=== PATIENT | female | born 1950 | race African-American/Black ===

== ENCOUNTER 2019-02-14 16:20 | Inpatient (IN) | payer OTHER ==
[~2019-02-14] VITALS: Ht 162.6 cm; Wt 82.3 kg
[2019-02-14 16:21] VITALS: BP 100/57
[2019-02-14 17:12] LABS: ABSOLUTE NEUTROPHILS 4.9 thou/uL (1.4-8.2); BASOPHILS 1.4 % (0.0-2.0); EOSINOPHILS 3.4 % (0.0-3.0); HEMATOCRIT 34.1 % (37.0-47.0); HEMOGLOBIN 11.5 gm/dL (12.0-15.0); MCH 31.4 pg (26.0-34.0); MCHC 33.8 g/dL (28.0-37.0); MCV 92.9 fL (80.0-100.0); MONOCYTES 5.2 % (1.0-8.0); PLATELET COUNT 381 thou/uL (150-400); RBC 3.67 mil/uL (4.20-5.00); RDW 13.5 % (10.5-14.5); WBC 7.4 thou/uL (4.0-11.0)
[2019-02-14 17:19] LABS: ANION GAP 14 mmol/L (7-16); BUN 26 mg/dL (7-18); CALCIUM 10.1 mg/dL (8.5-10.1); CHLORIDE 101 mmol/L (98-107); CO2 22 mmol/L (21-32); CREATININE 1.3 mg/dL (0.6-1.0); GLUCOSE 205 mg/dL (74-106); SODIUM 137 mmol/L (136-145)
[2019-02-14 17:28] LABS: ALBUMIN 3.4 g/dL (3.4-5.0); SGOT 19 U/L (15-37); SGPT 24 U/L (30-65); TOTAL BILIRUBIN 0.3 mg/dL (<0.1-1.0); TOTAL PROTEIN 7.3 g/dL (6.4-8.2); TROPONIN-I <0.06 ng/mL (<0.06)
[2019-02-14] MEDS ORDERED: TYLENOL EXTRA500 MG PO (17:50)
[2019-02-14] MEDS ORDERED: ATORVASTATIN CA40 MG PO (17:50)
[2019-02-14] MEDS ORDERED: ASPIR 8181 MG PO (17:50)
[2019-02-14] MEDS ORDERED: COLACE100 MG PO (17:51)
[2019-02-14] MEDS ORDERED: BENICAR40 MG PO (17:51)
[2019-02-14] MEDS ORDERED: METFORMIN HCL500 MG PO (17:51)
[2019-02-14] MEDS ORDERED: OMEPRAZOLE40 MG PO (17:51)
[2019-02-14] MEDS ORDERED: CARDIZEM CD120 MG PO (17:51)
[2019-02-14] MEDS ORDERED: CYMBALTA30 MG PO (17:51)
[2019-02-14] MEDS ORDERED: AMARYL2 MG PO (17:51)
[2019-02-14] MEDS ORDERED: OXYCODONE HCL 55 MG PO (17:52)
[2019-02-14] MEDS ORDERED: MIRALAX17 GM PO (17:52)
[2019-02-14] MEDS ORDERED: AMBIEN 5 MG TABL5 M1 PO (17:52)
[2019-02-14 18:13] LABS: URINE BILIRUBIN NEGATIVE (Negative); URINE BLOOD NEGATIVE (Negative); URINE CLARITY CLEAR; URINE COLOR YELLOW; URINE GLUCOSE-RANDOM* NEGATIVE (Negative); URINE KETONES TRACE (Negative); URINE LEUKOCYTES-REFLEX NEGATIVE (Negative); URINE NITRITE-REFLEX NEGATIVE (Negative); URINE PROTEIN (DIPSTICK) NEGATIVE (Negative); URINE SPECIFIC GRAVITY >= 1.030 (1.005-1.035); URINE UROBILINOGEN 0.2 E.U./dl (0.2-1.0)
--- NOTE | 2019-02-14 22:23 | NUR ---
CALL Tia WITH ROOM NUMBER [phone]
[2019-02-14 23:57] VITALS: BP 118/55
[2019-02-14 23:58] VITALS: BP 118/55
[2019-02-14 23:59] VITALS: BP 118/55
[2019-02-15] VITALS (7 sets, daily range): BP systolic 116–141; BP diastolic 57–82
[2019-02-15 04:02] LABS: CALCIUM 9.5 mg/dL (8.5-10.1); CREATININE 0.9 mg/dL (0.6-1.0); POTASSIUM 3.8 mmol/L (3.5-5.1)
[2019-02-15 04:46] LABS: HEMATOCRIT 29.3 % (37.0-47.0); RBC 3.12 mil/uL (4.20-5.00); RDW 13.5 % (10.5-14.5); WBC 5.1 thou/uL (4.0-11.0)
--- NOTE | 2019-02-15 08:06 | NUR ---
Received pt from ED at 2345. Pt had an EKG done at the doctors office that showed him be to running at 176. ED was able to give him a bolus on fluids. Consulting Dr. Bianchi. She had a Right Hip Replacement on 01/26/19. No dressing on surgical site CDI. His on RA. AOX4. No identified needs at the moment. Will continue to monitor.
--- NOTE | 2019-02-15 08:30 | EKG ---
[address] [address] ELECTROCARDIOGRAM REPORT Name: LISBET HUGGINS Room #: 457-P ADM IN M.R.#: [id number] ������������������ Admission: 02/14/19 ������������������ Attend Phys: Kuldeep Lozano MD Discharge: ������������������ Date of : 54 Report #: [id number] ����������������������������������������������������������������� [id number] THIS REPORT FOR: //name// [facility] ED Test Date: 2019-02-14 Test Time: 16:29:35 Pat Name: LISBET HUGGINS Department: Room: 457 Gender: F Pediatric Lpn: ISAIAS : 1950 Requested By: Tejas Martinez Order Number: [id number] MD: Grey Villegas Measurements Intervals [place] Rate: 115 P: 58 CT: 179 QRS: 13 QRSD: 90 T: 46 QT: 324 QTc: 448 Interpretive Statements Sinus tachycardia Ventricular premature complex Left atrial enlargement Abnormal R-wave progression, early transition Baseline wander in lead(s) V1 No previous ECG available for comparison Electronically Signed On 02-15-2019 8:30:45 CDT by Grey Villegas [email or web address] ��������������������������������������������� <ELECTRONICALLY SIGNED> ���������������������������������������� By: Grey Villegas MD ��������������������������������������������� 02/15/19 0830 1629 1629 Grey Villegas MD /EPI
--- NOTE | 2019-02-15 10:22 | NUR ---
ORTHO B/P THIS AM L- 141/57 SITTING 137/70 STANDING 138/70
--- NOTE | 2019-02-15 10:42 | NUR ---
chart review, cm team consulted. cm visited with fallon and spouse tammy at bedside. pt a & o x 4, and able to make her needs know. intro to cm, transition of care, hh and postacute. " live in apartment, 2nd floor. use elevator. independent prior to hip surgery in january. have walker just since had hip surgery. manage own medication. had hh for 2 weeks and just started oupt rehab at [facility]. think going home today. just want to go home, came here because cardio is here."/fallon. no anticipated needs voiced or noted. will cont following as needed for dc needs. dcp home
--- NOTE | 2019-02-15 16:08 | NUR ---
PT DISCHARGED AT THIS TIME. LEFT WITH ALL BELONGINGS IN W/C. SPOUSE WITH HER. IV ACSESS DCD AND TELE MONITOR REMOVED.
== END 2019-02-15 16:13 | disposition home or self-care (01) | DRG 308 ==
LOC: ER 16:20 → EROBS 19:34 → 4W 19:34
PROVIDERS: Nurse Practitioner Family; Physician Assistant; ADMIT Hospitalist
DX: I47.1 Supraventricular tachycardia (principal); N17.0 Acute kidney failure with tubular necrosis; E78.5 Hyperlipidemia, unspecified; E78.00 Pure hypercholesterolemia, unspecified; M19.90 Unspecified osteoarthritis, unspecified site; Z96.641 Presence of right artificial hip joint; I25.10 Atherosclerotic heart disease of native coronary artery without angina pectoris; I10 Essential (primary) hypertension; E11.9 Type 2 diabetes mellitus without complications; Z79.84 Long term (current) use of oral hypoglycemic drugs; Z79.82 Long term (current) use of aspirin; Z88.6 Allergy status to analgesic agent; Z88.8 Allergy status to other drugs, medicaments and biological substances; Z86.73 Personal history of transient ischemic attack (TIA), and cerebral infarction without residual deficits; Z98.51 Tubal ligation status

== ENCOUNTER → 2020-05-23 | Outpatient (CLI) | payer OTHER ==
[~2020-05-23] MED LIST: AMARYL2 MG PO; AMBIEN 5 MG TABL5 M1 PO; ASPIR 8181 MG PO; ATORVASTATIN CA40 MG PO; BENICAR40 MG PO; CARDIZEM CD120 MG PO; COLACE100 MG PO; CYMBALTA30 MG PO; METFORMIN HCL500 MG PO; MIRALAX17 GM PO; OMEPRAZOLE40 MG PO; OXYCODONE HCL 55 MG PO; TYLENOL EXTRA500 MG PO
== END ==
LOC: SJCVC 10:00
PROVIDERS: ATTEND Internal Medicine Cardiovascular Disease
DX: R94.31 Abnormal electrocardiogram [ECG] [EKG] (principal); R00.0 Tachycardia, unspecified; I25.10 Atherosclerotic heart disease of native coronary artery without angina pectoris; E78.00 Pure hypercholesterolemia, unspecified; I10 Essential (primary) hypertension; I65.23 Occlusion and stenosis of bilateral carotid arteries; E11.9 Type 2 diabetes mellitus without complications

== ENCOUNTER → 2021-01-14 | Outpatient (CLI) | payer OTHER | LOC: SJCVC 10:56 | PROVIDERS: ATTEND Internal Medicine Cardiovascular Disease | DX: R94.31 Abnormal electrocardiogram [ECG] [EKG] (principal); I25.10 Atherosclerotic heart disease of native coronary artery without angina pectoris; I10 Essential (primary) hypertension; E78.00 Pure hypercholesterolemia, unspecified; I77.9 Disorder of arteries and arterioles, unspecified; E11.9 Type 2 diabetes mellitus without complications; E78.5 Hyperlipidemia, unspecified; F32.9 Major depressive disorder, single episode, unspecified; Z86.73 Personal history of transient ischemic attack (TIA), and cerebral infarction without residual deficits; Z88.5 Allergy status to narcotic agent; Z88.1 Allergy status to other antibiotic agents; Z79.82 Long term (current) use of aspirin; Z79.899 Other long term (current) drug therapy; Z87.891 Personal history of nicotine dependence; Z72.89 Other problems related to lifestyle ==

== ENCOUNTER → 2021-12-17 | Outpatient (CLI) | payer OTHER | LOC: SJCVCIMAG 08:33 | PROVIDERS: ATTEND Internal Medicine Cardiovascular Disease | DX: R06.00 Dyspnea, unspecified (principal) ==